=== PATIENT | male | born 1970 | race Caucasian/White ===

== ENCOUNTER 2022-08-05 15:16 | Emergency (ER) | payer MEDICAID, OTHER ==
[~2022-08-05] VITALS: Ht 175.3 cm; Wt 61.2 kg
--- NOTE | 2022-08-05 15:25 | ED Abdominal Pain ---
General Stated Complaint: ABD PAIN Source of Information: Patient Exam Limitations: No Limitations History of Present Illness Date Seen by Provider: Aug 05, 2022 Time Seen by Provider: 15:20 Initial Comments 52-year-old male presents for 2 hours of abdominal pain. He states is a burning sensation in his lower abdomen bilaterally. No history of abdominal surgeries or similar issues. He also complains of loose stools. Denies any fevers or chills. No urinary symptoms. No testicular pain. No nausea or vomiting. His mother is concerned that he may have "fallen off the wagon." He has a history of amphetamine and opiate abuse per her report. Allergies and Home Medications Allergies Coded Allergies: No Known Drug Allergies (Unverified , 08/05/22) Patient Home Medication List Home Medication List Reviewed: Yes Ciprofloxacin HCl (Ciprofloxacin HCl) 500 Mg Tablet, 500 MG PO BID Prescribed by: SAMARIA CHOPRA MD on 08/05/22 1149 Review of Systems Review of Systems Constitutional: no symptoms reported EENTM: No Symptoms Reported Respiratory: No Symptoms Reported Cardiovascular: No Symptoms Reported Gastrointestinal: Abdominal Pain, Diarrhea Genitourinary: No Symptoms Reported Musculoskeletal: no symptoms reported Skin: no symptoms reported Psychiatric/Neurological: No Symptoms Reported Endocrine: No Symptoms Reported Hematologic/Lymphatic: No Symptoms Reported Past Wexhzqm-Gbannp-Kjloyn Hx Patient Social History Tobacco Use?: Yes Use of E-Cig and/or Vaping dev: No Substance use?: Yes Alcohol Use?: No Family Medical History Reviewed Nursing Family Hx No Pertinent Family Hx Physical Exam Vital Signs Vital Signs - First Documented 08/05/22 15:23 Temp 35.7 Pulse 75 Resp 20 B/P (MAP) 163/89 (113) O2 Delivery Room Air Capillary Refill : Height/Weight/BMI Height: '" Weight: lbs. oz. kg; BMI Method: General Appearance: WD/WN, no apparent distress HEENT: normal ENT inspection, pharynx normal Neck: non-tender, full range of motion, supple, normal inspection Respiratory: chest non-tender, lungs clear, normal breath sounds, no respiratory distress, no accessory muscle use Cardiovascular: regular rate, rhythm, no edema, no gallop, no JVD, no murmur Gastrointestinal: normal bowel sounds, soft, no organomegaly, tenderness (Diffuse lower abdominal tenderness even with very light palpation of the skin. The patient is writhing on the bed) Extremities: normal range of motion, normal inspection, no calf tenderness Back: normal inspection, no CVA tenderness, no vertebral tenderness Neurologic/Psychiatric: alert, normal mood/affect, oriented x 3 Skin: normal color, warm/dry Lymphatic: no adenopathy Progress/Results/Core Measures Results/Orders Lab Results Laboratory Tests Test 08/05/22 15:30 08/05/22 15:43 08/05/22 15:48 Range/Units Urine Color YELLOW Urine Clarity SL CLOUDY Urine pH 5.0 5-9 Urine Specific [place] >=1.030 1.016-1.022 Urine Protein NEGATIVE NEGATIVE Urine Glucose (UA) NEGATIVE NEGATIVE Urine Ketones TRACE H NEGATIVE Urine Nitrite POSITIVE H NEGATIVE Urine Bilirubin NEGATIVE NEGATIVE Urine Urobilinogen 0.2 < = 1.0 MG/DL Urine Leukocyte Esterase 1+ H NEGATIVE Urine RBC (Auto) TRACE-I H NEGATIVE Urine RBC NONE /HPF Urine WBC 5-10 H /HPF Urine Squamous Epithelial Cells RARE /HPF Urine Crystals NONE /LPF Urine Bacteria FEW H /HPF Urine Casts NONE /LPF Urine Mucus NEGATIVE /LPF Urine Culture Indicated YES Urine Opiates Screen NEGATIVE NEGATIVE Urine Oxycodone Screen NEGATIVE NEGATIVE Urine Methadone Screen NEGATIVE NEGATIVE Urine Propoxyphene Screen NEGATIVE NEGATIVE Urine Barbiturates Screen NEGATIVE NEGATIVE Ur Tricyclic Antidepressants Screen NEGATIVE NEGATIVE Urine Phencyclidine Screen NEGATIVE NEGATIVE Urine Amphetamines Screen POSITIVE H NEGATIVE Urine Methamphetamines Screen POSITIVE H NEGATIVE Urine Benzodiazepines Screen NEGATIVE NEGATIVE Urine Cocaine Screen NEGATIVE NEGATIVE Urine Cannabinoids Screen POSITIVE H NEGATIVE White Blood Count 6.3 4.3-11.0 10^3/uL Red Blood Count 4.79 4.30-5.52 10^6/uL Hemoglobin 15.1 13.3-17.7 g/dL Hematocrit 44 40-54 % Mean Corpuscular Volume 91 80-99 fL Mean Corpuscular Hemoglobin 32 25-34 pg Mean Corpuscular Hemoglobin Concent 35 32-36 g/dL Red Cell Distribution Width 11.9 10.0-14.5 % Platelet Count 237 130-400 10^3/uL Mean Platelet Volume 9.2 9.0-12.2 fL Immature Granulocyte % (Auto) 0 % Neutrophils (%) (Auto) 46 42-75 % Lymphocytes (%) (Auto) 43 12-44 % Monocytes (%) (Auto) 9 0-12 % Eosinophils (%) (Auto) 1 0-10 % Basophils (%) (Auto) 1 0-10 % Neutrophils # (Auto) 2.9 1.8-7.8 10^3/uL Lymphocytes # (Auto) 2.7 1.0-4.0 10^3/uL Monocytes # (Auto) 0.5 0.0-1.0 10^3/uL Eosinophils # (Auto) 0.1 0.0-0.3 10^3/uL Basophils # (Auto) 0.0 0.0-0.1 10^3/uL Immature Granulocyte # (Auto) 0.0 0.0-0.1 10^3/uL Sodium Level 141 135-145 MMOL/L Potassium Level 3.9 3.6-5.0 MMOL/L Chloride Level 103 98-107 MMOL/L Carbon Dioxide Level 24 21-32 MMOL/L Anion Gap 14 5-14 MMOL/L Blood Urea Nitrogen 31 H 7-18 MG/DL Creatinine 0.67 0.60-1.30 MG/DL Estimat Glomerular Filtration Rate 112 BUN/Creatinine Ratio 46 Glucose Level 123 H 70-105 MG/DL Calcium Level 9.0 8.5-10.1 MG/DL Corrected Calcium 8.8 8.5-10.1 MG/DL Total Bilirubin 0.4 0.1-1.0 MG/DL Aspartate Amino Transf (AST/SGOT) 81 H 5-34 U/L Alanine Aminotransferase (ALT/SGPT) 114 H 0-55 U/L Alkaline Phosphatase 104 40-136 U/L Total Protein 7.5 6.4-8.2 GM/DL Albumin 4.3 3.2-4.5 GM/DL Lipase 37 8-78 U/L Influenza Type A (RT-PCR) Not Detected Not Detecte Influenza Type B (RT-PCR) Not Detected Not Detecte SARS-CoV-2 RNA (RT-PCR) Not Detected Not Detecte My Orders Orders - SAMARIA CHOPRA DO Comprehensive Metabolic Panel (08/05/22 15:33) Cbc With Automated Diff (08/05/22 15:33) Lipase (08/05/22 15:33) Ua Culture If Indicated (08/05/22 15:33) Drug Screen Stat (Urine) (08/05/22 15:33) Ct Abdomen/Pelvis W (08/05/22 15:46) Ketorolac Injection (Toradol Injection) (08/05/22 16:00) Urine Culture (08/05/22 15:30) Iohexol Injection (Omnipaque 350 Mg/Ml 1 (08/05/22 16:45) Received Contrast (Hold Metformin- Contr (08/05/22 16:45) Sodium Chloride Flush (Catheter Flush Sy (08/05/22 16:45) Ns (Ivpb) (Sodium Chloride 0.9% Ivpb Bag (08/05/22 16:45) Covid 19 Inhouse Test (08/05/22 16:42) Influenza A And B By Pcr (08/05/22 16:42) Isolation Central Supply Req (08/05/22 16:42) Medications Given in ED Current Medications Medications Dose Ordered Sig/Estee Route Start Time Stop Time Status Last Admin Dose Admin Iohexol 75 ml ONCE ONCE IV 08/05/22 16:45 08/05/22 16:46 DC 08/05/22 16:59 75 ML Ketorolac Tromethamine 30 mg ONCE ONCE IVP 08/05/22 16:00 08/05/22 16:01 DC 08/05/22 15:54 30 MG Sodium Chloride 10 ml NEEDED PRN IV 08/05/22 16:45 08/05/22 16:59 10 ML Sodium Chloride 100 ml ONCE ONCE IV 08/05/22 16:45 08/05/22 16:46 DC 08/05/22 16:59 40 ML Vital Signs/I&O 08/05/22 15:23 Temp 35.7 Pulse 75 Resp 20 B/P (MAP) 163/89 (113) O2 Delivery Room Air Departure Communication (Admissions) The patient has a fecal impaction on CT scan. He had a large bowel movement while awaiting these results and his abdominal pain has improved, nearly nonexistent at this point. He is hemodynamically stable. He does have what appears to be a slight urinary tract infection. offered testing for STIs which he refused as he states he has not had any sexual contacts. Treated with Cipro for UTI Impression Primary Impression: Fecal impaction in rectum Additional Impression: Urinary tract infection Qualified Codes: N30.00 - Acute cystitis without hematuria Disposition: HOME, SELF-CARE Condition: Stable Departure-Patient Inst. Referrals: NO,LOCAL PHYSICIAN (PCP/Family) Primary Care Physician Patient Instructions: Fecal Impaction (DC) Add. Discharge Instructions: Use a stool softener such as MiraLAX or the like for the next couple of days. I ncrease your fluids at home. You do appear to have a UTI. Take the antibiotics as prescribed until they are gone. Return to the emergency department for any severe concerns. Scripts Ciprofloxacin HCl (Ciprofloxacin HCl) 500 Mg Tablet 500 MG PO BID for 5 Days, #10 TAB Prov: SAMARIA CHOPRA DO 08/05/22 SAMARIA CHOPRA DO Aug 05, 2022 15:25
[2022-08-05 15:53] LABS: BASOPHILS % (AUTO) 1 % (0-10); EOSINOPHILS # (AUTO) 0.1 10^3/uL (0.0-0.3); EOSINOPHILS % (AUTO) 1 % (0-10); HEMATOCRIT 44 % (40-54); HEMOGLOBIN 15.1 g/dL (13.3-17.7); LYMPHOCYTES # (AUTO) 2.7 10^3/uL (1.0-4.0); LYMPHOCYTES % (AUTO) 43 % (12-44); MEAN CORPUSCULAR HEMOGLOBIN 32 pg (25-34); MEAN CORPUSCULAR HGB CONC 35 g/dL (32-36); MEAN CORPUSCULAR VOLUME 91 fL (80-99); MEAN PLATELET VOLUME 9.2 fL (9.0-12.2); MONOCYTES # (AUTO) 0.5 10^3/uL (0.0-1.0); MONOCYTES % (AUTO) 9 % (0-12); NEUTROPHILS # (AUTO) 2.9 10^3/uL (1.8-7.8); NEUTROPHILS % (AUTO) 46 % (42-75); PLATELET COUNT 237 10^3/uL (130-400); WHITE BLOOD COUNT 6.3 10^3/uL (4.3-11.0)
[2022-08-05 15:55] LABS: BILIRUBIN,URINE NEGATIVE (NEGATIVE); CLARITY,URINE SL CLOUDY; COLOR,URINE YELLOW; GLUCOSE, URINE (UA) NEGATIVE (NEGATIVE); KETONES,URINE TRACE (NEGATIVE); LEUKOCYTE ESTERASE ,URINE 1+ (NEGATIVE); NITRITE,URINE POSITIVE (NEGATIVE); PROTEIN,URINE NEGATIVE (NEGATIVE)
[2022-08-05] MEDS ORDERED: KETOROLAC 30 MG/ML VIAL IVP ONE (16:00)
[2022-08-05 16:06] LABS: AMPHETAMINE SCREEN, URINE POSITIVE (NEGATIVE); CANNABINOID SCREEN, URINE POSITIVE (NEGATIVE)
[2022-08-05 16:07] LABS: BARBITURATE SCREEN URINE NEGATIVE (NEGATIVE); BENZODIAZEPINES SCREEN URINE NEGATIVE (NEGATIVE); COCAINE SCREEN URINE NEGATIVE (NEGATIVE); METHADONE STAT NEGATIVE (NEGATIVE); OPIATE SCREEN URINE NEGATIVE (NEGATIVE); OXYCODONE STAT NEGATIVE (NEGATIVE); PROPOXYPHENE STAT NEGATIVE (NEGATIVE); TRICYCLIC ANTIDEPRESSANTS SCRE NEGATIVE (NEGATIVE)
[2022-08-05 16:12] LABS: BACTERIA,URINE FEW /HPF; SQUAMOUS EPITHELIAL CELL,UR RARE /HPF
[2022-08-05 16:28] LABS: ALBUMIN 4.3 GM/DL (3.2-4.5); BILIRUBIN,TOTAL 0.4 MG/DL (0.1-1.0); CREATININE SERUM 0.67 MG/DL (0.60-1.30); POTASSIUM 3.9 MMOL/L (3.6-5.0); TOTAL PROTEIN 7.5 GM/DL (6.4-8.2)
[2022-08-05] MEDS ORDERED: IOHEXOL 350 MG/ML 100 ML (OMNIPAQUE 350) VIAL IV ONE (16:45)
[2022-08-05] MEDS ORDERED: NS 100 ML (IVPB) BAG IV ONE (16:45)
[2022-08-05] MEDS ORDERED: CATHETER FLUSH 10 ML SYR IV PRN (16:45)
[2022-08-05] MEDS ORDERED: HOLD METFORMIN - RECEIVED CONTRAST 20 ML VIAL IV SCH (16:45)
--- NOTE | 2022-08-05 17:16 | Diagnostic Imaging Report ---
EXAMINATION: CT abdomen and pelvis with contrast, 08/05/2022. TECHNIQUE: Multiple contiguous axial images were obtained through the abdomen and pelvis after administration of intravenous contrast. Auto Exposure Controls were utilized during the CT exam to meet ALARA standards for radiation dose reduction. All CT scans use one or more of the following dose optimizing techniques: Automated exposure control, MA and/or KvP adjustment based on patient size and exam type or iterative reconstruction. INDICATION: Abdominal pain with nausea and vomiting. COMPARISONS: None. FINDINGS: Lung bases are clear. Small hiatal hernia is noted. The liver and spleen are unremarkable. Gallbladder is distended without surrounding inflammatory change appreciated. The adrenal glands and pancreas are unremarkable. There are diffusely slightly dilated loops of large bowel with findings of marked constipation. Fecal impaction noted at the rectosigmoid. No transition point or obstruction seen throughout the colon. The appendix is not seen with certainty. No focal inflammatory changes are seen in the right lower quadrant. Minimally prominent fluid-filled small bowel loops in the right lower quadrant and mid abdomen noted likely due to a mild ileus with enteritis not excluded. There is no free air with no significant free fluid appreciated. There is fluid, however, within the right inguinal canal with a likely herniation noted. There is atherosclerotic disease. Kidneys are unremarkable. There is no acute osseous abnormality. IMPRESSION: 1. Findings of fecal impaction with marked changes of constipation and secondary dilatation of the colon. 2. Secondary mild ileus versus enteritis. Other findings as above. Dictated by: Dictated on workstation # [id number]
[2022-08-05] MEDS ORDERED: CIPR500T5 PO (17:37)
[2022-08-05 17:43] VITALS: BP 144/82
== END 2022-08-05 17:43 | disposition home or self-care (01) ==
LOC: ER FS 15:19
DX: K56.41 Fecal impaction (principal); N39.0 Urinary tract infection, site not specified; Z28.310 Unvaccinated for COVID-19; Z20.822 Contact with and (suspected) exposure to COVID-19
CPT/HCPCS: 36415; 74177; 80053; 80306; 81000; 83690; 85025; 87077; 87088; 87636; Q9967

== ENCOUNTER 2022-12-01 09:13 | Emergency (ER) | payer MEDICAID ==
[~2022-12-01 09:13] MED LIST: CIPR500T5 PO
[2022-12-01] MEDS ORDERED: PRD50T PO (09:25)
--- NOTE | 2022-12-01 09:27 | ED Integumentary General ---
General Chief Complaint: Skin/Wound Problems Stated Complaint: RASH Source: patient, family (mother) Exam Limitations: no limitations History of Present Illness Date Seen by Provider: Dec 01, 2022 Time Seen by Provider: 09:15 Initial Comments 52-year-old male presents to the emergency department today for evaluation of a poison selma or other contact dermatitis. He was pulling weeds and clearing brush and flower bed yesterday and had symptoms today. He states it is on his arms, face and in his genital region. Significantly pruritic. No fevers or chills. No other exposures. All other systems reviewed and negative except documented per HPI. Voice recognition software was used to help create this chart Allergies and Home Medications Allergies Coded Allergies: No Known Drug Allergies (Unverified , 08/05/22) Patient Home Medication List Home Medication List Reviewed: Yes Ciprofloxacin HCl (Ciprofloxacin HCl) 500 Mg Tablet, 500 MG PO BID Prescribed by: SAMARIA CHOPRA MD on 08/05/22 8743 Review of Systems Review of Systems Constitutional: see HPI Past Hhkqhqn-Mutmul-Gmrzfh Hx Patient Social History Tobacco Use?: No Use of E-Cig and/or Vaping dev: No Substance use?: No Alcohol Use?: No Pt feels they are or have been: No Immunizations Up To Date Influenza Vaccine Up-to-Date: No; Not Current First/Initial COVID19 Vaccinat: Denies Past Medical History Surgery/Hospitalization HX: Denies Family Medical History No Pertinent Family Hx Physical Exam Vital Signs Capillary Refill : General Appearance: WD/WN, no apparent distress HEENT: normal ENT inspection, pharynx normal Neck: non-tender, full range of motion Cardiovascular: regular rate, rhythm, no murmur Respiratory: chest non-tender, lungs clear, normal breath sounds Gastrointestinal: normal bowel sounds, non tender, soft Extremities: normal range of motion, non-tender, normal capillary refill Skin: other (Diffuse macular rash) Departure Communication (Admissions) Patient is hemodynamically stable. He has no systemic symptoms. Symptoms consistent with contact dermatitis based on exam and history. To be given p.o. steroids and recommended to use p.o. Benadryl. Also recommended calamine lotion would like [id number]. Discharged in stable condition. Impression Primary Impression: Contact dermatitis due to poison selma Disposition: HOME, SELF-CARE Condition: Stable Departure-Patient Inst. Referrals: NO,LOCAL PHYSICIAN (PCP/Family) Primary Care Physician Patient Instructions: Poison [place], Poison [place], Poison [place] ED Add. Discharge Instructions: Take the steroid medication as prescribed until it is gone. Use Benadryl [id number] as well. the Benadryl may make you drowsy. You may want to use calamine lotion as well which is [id number] and can help soothe the itching and discomfort. All discharge instructions reviewed with patient and/or family. Voiced understanding. Scripts Prednisone (Prednisone) 50 Mg Tab 50 MG PO DAILY for 5 Days, #5 TAB Prov: SAMARIA CHOPRA DO 12/01/22 SAMARIA CHOPRA DO Dec 01, 2022 09:27
[2022-12-01 09:37] VITALS: BP 127/95
== END 2022-12-01 09:28 | disposition home or self-care (01) ==
LOC: EDUNIT# 09:13 → ER FS 09:15
DX: L23.7 Allergic contact dermatitis due to plants, except food (principal); Z28.310 Unvaccinated for COVID-19
CPT/HCPCS: 99281